=== PATIENT | female | born 1995 | race Two or more races ===

== ENCOUNTER 2023-11-25 02:01 | Inpatient (IN) | payer MEDICAID, OTHER ==
[~2023-11-25] VITALS: Ht 157.5 cm; Wt 48.3 kg
[2023-11-25 02:40] LABS: BASOPHILS % (AUTO) 0.4 % (0.0-2.0); EOSINOPHILS % (AUTO) 1.4 % (1.0-6.0); HEMATOCRIT 39.9 % (36-46); HEMOGLOBIN 13.6 g/dL (12.0-16.0); LYMPHOCYTES # (AUTO) 2.4 K/uL (1.0-4.8); LYMPHOCYTES % (AUTO) 18.6 % (22.0-44.0); MEAN CORPUSCULAR HEMOGLOBIN 31.4 pg (26.0-34.0); MEAN CORPUSCULAR VOLUME 92 fL (80-100); MONOCYTES # (AUTO) 0.6 K/uL (0.1-1.0); MONOCYTES % (AUTO) 4.6 % (2.0-9.0); NEUTROPHILS # (AUTO) 9.8 K/uL (1.8-7.7); PLATELET COUNT (AUTO) 272 K/uL (150-450); RED BLOOD CELL COUNT(AUTO) 4.33 MIL/uL (4.00-5.20); RED CELL DISTRIBUTION WIDTH 12.8 % (11.5-14.5)
[2023-11-25 02:50] LABS: ANION GAP 10 mmol/L (8-16); CALCIUM, TOTAL 9.1 mg/dL (8.8-10.5); CARBON DIOXIDE 26 mmol/L (22-29); CHLORIDE 106 mmol/L (98-107); GLOMERULAR FILTR. RATE CALC > 60 mL/min (>60); GLUCOSE,RANDOM 95 mg/dL (70-110); POTASSIUM 3.3 mmol/L (3.5-5.1); SODIUM SERUM 142 mmol/L (136-145); UREA NITROGEN, BLOOD 13 mg/dL (7-18)
[2023-11-25 02:57] LABS: ALANINE AMINOTRANSFERASE 20 U/L (12-78); ALKALINE PHOSPHATASE 60 U/L (46-116); ASPARTATE AMINOTRANSFERASE 18 U/L (15-37); BILIRUBIN,TOTAL 0.6 mg/dL (0.1-1.0); TOTAL PROTEIN, SERUM 7.4 g/dL (6.4-8.2)
[2023-11-25 03:07] LABS: ALCOHOL, BLOOD (SERUM) < 3 mg/dL (0-10)
[2023-11-25 03:16] LABS: COVID AG,FIA SOURCE NASAL SWAB
[2023-11-25 03:28] LABS: SARS-COV2 (COVID) ANTIGEN,FIA Negative (Negative)
[2023-11-25] MEDS ORDERED: HALOPERIDOL 5 MG TABLET PO PRN (03:45)
[2023-11-25] MEDS ORDERED: LORazepam 2 MG TABLET PO PRN (03:45)
[2023-11-25] MEDS ORDERED: ZOLPIDEM TARTRATE 10 MG TABLET PO PRN (03:45)
[2023-11-25] MEDS ORDERED: ALBUTEROL SULFATE/IPRATROPIUM 100-20 MCG/SPRAY 4 GM INHALER IH PRN (11:45)
[2023-11-25 15:14] VITALS: BP 116/79; PULSE 94; RESP 18; TEMP 98.2; O2SAT 99
[2023-11-25 20:53] LABS: APPEARANCE,URINE HAZY (CLEAR); BILIRUBIN,URINE NEGATIVE (NEGATIVE); COLOR,URINE YELLOW (YELLOW); GLUCOSE, URINE (UA) NEGATIVE (NEGATIVE); KETONES,URINE NEGATIVE (NEGATIVE); LEUKOCYTE ESTERASE ,URINE MODERATE (NEGATIVE); NITRATE,URINE NEGATIVE (NEGATIVE); OCCULT BLOOD,URINE NEGATIVE (NEGATIVE); PROTEIN,URINE NEGATIVE (NEGATIVE); SPECIFIC GRAVITIY, URINE 1.022 (1.003-1.030)
[2023-11-25 20:59] LABS: ALCOHOL, URINE DRUG SCREEN NEGATIVE (NEGATIVE); AMPHET/METH SCREEN,URINE POSITIVE (NEGATIVE); BARBITURATE SCREEN, URINE NEGATIVE (NEGATIVE); BENZODIAZEPINES SCREEN,URINE NEGATIVE (NEGATIVE); CANNABINOID SCREEN,URINE POSITIVE (NEGATIVE); COCAINE SCREEN,URINE NEGATIVE (NEGATIVE); METHADONE SCREEN, URINE NEGATIVE (NEGATIVE); OPIATE SCREEN,URINE NEGATIVE (NEGATIVE); PHENCYCLIDINE SCREEN,URINE NEGATIVE (NEGATIVE)
[2023-11-25 21:20] LABS: RBC,URINE None Seen /HPF (0-2); SQUAMOUS EPITHELIAL CELL,UR Moderate /LPF (None Seen)
[2023-11-25 21:21] LABS: BACTERIA,URINE Moderate /HPF (None Seen)
[2023-11-25 22:32] VITALS: BP 109/75; PULSE 80; RESP 18; TEMP 97.3; O2SAT 100
[2023-11-26 03:06] LABS: HIV 1-2 SCREEN 4TH GEN W/RFLX Non Reactive (Non Reactive)
[2023-11-26 06:06] LABS: HEPATITIS C AB (EIA) Non Reactive (Non Reactive)
[2023-11-26] MEDS: POTASSIUM CHLORIDE 20 MEQ ER TABLET PO ONE (07:03)
[2023-11-26 09:45] VITALS: BP 109/63; PULSE 72; RESP 16; TEMP 97.9; O2SAT 100
[2023-11-26] MEDS: LORATADINE 10 MG TABLET PO SCH (10:06)
[2023-11-26] MEDS: MONTELUKAST SODIUM 10 MG TABLET PO SCH (10:06)
[2023-11-26] MEDS ORDERED: ONDANSETRON HCL 4 MG TABLET PO PRN (15:15)
[2023-11-26] MEDS ORDERED: MAGNESIUM HYDROXIDE SUSPENSION 30 ML UDCUP PO PRN (15:15)
[2023-11-26] MEDS ORDERED: DOCUSATE SODIUM 100 MG CAPSULE PO PRN (15:15)
[2023-11-26] MEDS ORDERED: MAG HYDROX/ALUMINUM HYD/SIMETH ES 30 ML SUSPENSION UDCUP PO PRN (15:15)
[2023-11-26] MEDS ORDERED: CloNIDine HCL 0.1 MG TABLET PO PRN (15:15)
[2023-11-26] MEDS ORDERED: PETROLATUM,WHITE 28 GM JELLY TP PRN (15:15)
[2023-11-26] MEDS ORDERED: LOPERAMIDE HCL 2 MG CAPSULE PO PRN (15:15)
[2023-11-26] MEDS ORDERED: GuaiFENesin/D-METHORPHAN [SUGAR-FREE] 200-20MG/10 ML SYRUP UDCUP PO PRN (15:15)
[2023-11-26] MEDS ORDERED: ACETAMINOPHEN 325 MG TABLET PO PRN (15:15)
[2023-11-26] MEDS ORDERED: NICOTINE 14 MG/24 HOUR PATCH TD PRN (15:15)
[2023-11-26] MEDS ORDERED: IBUPROFEN 400 MG TABLET PO PRN (15:15)
[2023-11-26] MEDS: CEPHALEXIN MONOHYDRATE 500 MG CAPSULE PO SCH (16:14)
[2023-11-26] MEDS: RisperiDONE 0.5 MG TABLET PO SCH (20:59)
[2023-11-26 21:13] VITALS: BP 112/66; PULSE 95; RESP 16; TEMP 97.7; O2SAT 98
[2023-11-27 09:03] LABS: HEMOGLOBIN A1C 5.4 % (3.8-5.6)
[2023-11-27 09:17] LABS: POTASSIUM 4.5 mmol/L (3.5-5.1); THYROID STIMULATING HORMONE 1.18 uIU/mL (0.36-3.74)
[2023-11-27 10:25] LABS: CHOL/HDL RATIO 2.5 (3.9-5.7)
[2023-11-27 11:15] VITALS: BP 100/65; PULSE 91; RESP 16; TEMP 97.8; O2SAT 98
[2023-11-27 22:26] VITALS: BP 106/67; PULSE 70; RESP 18; TEMP 97.6; O2SAT 97
[2023-11-28 10:20] VITALS: BP 110/55; PULSE 109; RESP 16; TEMP 97.1; O2SAT 99
[2023-11-28 20:53] VITALS: BP 111/61; PULSE 89; RESP 18; TEMP 97.5
[2023-11-29 08:02] VITALS: BP 123/75; PULSE 81; RESP 18; TEMP 97.9
[2023-11-29 20:55] VITALS: BP 107/60; PULSE 85; RESP 18; TEMP 97.9; O2SAT 98
[2023-11-30] MEDS: ALBUTEROL SULFATE HFA 90 MCG/PUFF 8 GM INHALER IH PRN (01:47)
[2023-11-30 09:00] VITALS: BP 114/71; PULSE 99; RESP 18; TEMP 96.4; O2SAT 100
[2023-11-30 14:25] LABS: COVID AG,FIA SOURCE NASAL SWAB
[2023-11-30 14:40] LABS: SARS-COV2 (COVID) ANTIGEN,FIA Negative (Negative)
[2023-12-01] MEDS ORDERED: LORA10TA60 PO (11:49)
[2023-12-01] MEDS ORDERED: MONT-35 PO (11:49)
[2023-12-01] MEDS ORDERED: RISP0.5T39 PO (11:49)
== END 2023-11-30 16:05 | disposition home or self-care (01) | DRG 751 ==
LOC: EMS 02:05 → EDSEX 02:05 → 3EI 09:43
PROVIDERS: ADMIT Psychiatry & Neurology Psychiatry; ATTEND Psychiatry & Neurology Psychiatry
PROC: GZHZZZZ Group Psychotherapy (ICD-10-PCS; principal; 2023-11-28)
DX: F29 Unspecified psychosis not due to a substance or known physiological condition (principal); R45.851 Suicidal ideations; F20.9 Schizophrenia, unspecified; E87.6 Hypokalemia; F32.A Depression, unspecified; F19.90 Other psychoactive substance use, unspecified, uncomplicated; Z20.822 Contact with and (suspected) exposure to COVID-19; F41.9 Anxiety disorder, unspecified; G47.00 Insomnia, unspecified; N39.0 Urinary tract infection, site not specified; Z59.00 Homelessness unspecified
CPT/HCPCS: 80053; 80061; 80307; 81001; 83036; 84132; 84443; 84703; 85025; 86592; 86803; 87086; 87186; 87340; 87389; 87491; 99285; G0480; J3535